=== PATIENT | female | born 1985 | race Caucasian/White ===

== ENCOUNTER 2016-09-24 10:41 | Emergency (ER) | payer MEDICAID ==
[2016-09-24 11:12] VITALS: BP 101/73; PULSE 96; RESP 16; TEMP 97.9; O2SAT 95
[2016-09-24 11:23] LABS: COLOR YELLOW; LEUKOCYTE ESTERASE,URINE 3+ (NEGATIVE); NITRITE,URINE POSITIVE (NEGATIVE); PH,URINE 5.5 (5.0-7.5)
[2016-09-24 11:39] LABS: WBC,URINE >182 /hpf (0-3)
[2016-09-24 11:40] LABS: BACTERIA 2+ /hpf (NONE SEEN); RBC,URINE 25-50 /hpf (0-3)
--- NOTE | 2016-09-24 12:03 | UCPHY ---
[id number] 4d 09/24/16 11:57 HPI/ROS: HPI: 30-year-old female presents to urgent care with chief concern urinary burning and frequency times 4-5 days. Onset within a day after she had intercourse. Denies fever, chills, nausea, vomiting, back or flank pain, suprapubic tenderness, hematuria, vulvovaginal lesions, increased vaginal discharge. Last UTI 2 years ago. No recent antibiotic use. ROS:10 point review of systems is negative other than as stated in HPI (Yu May) Physical Exam: Vital signs stable, reviewed by me General: Awake, alert, calm, cooperative. No acute distress. EENT: PERRLA. EOMI. No pallor or injection. Anicteric. No nystagmus. No injection. Neck: Supple, nontender. Respiratory: Breathing unlabored. Breath sounds equal bilaterally and clear to auscultation. No adventitious sounds. CV: Chest nontender, atraumatic. Heart rate regular. GI: Abdomen soft, nontender. Bowel sounds normoactive and positive x4 quadrants. : No suprapubic tenderness. No CVA or flank tenderness. Neuro: Alert. Oriented x 3. Speech clear. Nonfocal cranial nerves throughout. Sensation intact all extremities. Skin: Skin warm, dry, intact. Extremities: Moves all extremities (Yu May) Constitutional: Initial Vital Signs Temperature (C) 36.6 C 09/24/16 11:11 Heart Rate 96 09/24/16 11:11 Respiratory Rate 16 09/24/16 11:11 Blood Pressure 101/73 09/24/16 11:11 O2 Sat (%) 95 09/24/16 11:11 O2 Delivery Mode Room Air Allergies/Adverse Reactions: No Known Allergies Allergy (Verified 09/24/16 11:10) Home Medications: Medication Instructions Recorded None 11/22/09 Fluconazole [Diflucan 150 MG (RX)] 150 mg PO ONCE #2 tab 09/24/16 Nitrofurantoin Macrobid [Macrobid] 100 mg PO BID #14 cap 09/24/16 Medical Decision Making ED Course/Re-evaluation: Nontoxic, afebrile. Urinalysis is consistent with UTI with positive nitrate, esterase, and greater than 182 WBCs. No fever, nausea, vomiting, back or flank pain. Culture pending. Patient started on twice daily Macrobid x1 week. (Yu May) Urgent Care PA supervision Physician documentation: The patient was evaluated and managed by the physician preschool assistant principal. My co- signature indicates that I have reviewed this chart and I agree with the findings and plan of care as documented. I am the secondary supervising physician. (Yoandy Sullivan) Differential Diagnosis: Differential includes but is not limited to cystitis, pyelonephritis, urethritis , dysuria (Yu May) - Data Points Microbiology Results: MICROBIOLOGY 09/24/16 11:35 Urine,Clean Catch Urine Culture - Preliminary Gram Neg Leonel Lactose Front Office Coordinator Departure - Departure Disposition: Home, Routine, Self-Care Clinical Impression: Urinary tract infection Condition: Good Instructions: Urinary Tract Infection in Women (ED) Additional Instructions: Plan: Drink plenty of fluids Antibiotic twice daily for 1 week Take an [id number] probiotic and/or eat yogurt while taking this antibiotic. If you develop yeast infection symptoms, may use Diflucan once. May repeat in 72 hours if symptoms still present. Do not drink alcohol while using Diflucan. Azo [id number] for symptoms of burning as needed May continue to drink your cranberry juice If you develop worsening symptoms including fever, chills, back or flank pain, nausea or vomiting please return promptly for recheck or follow up with primary care at [facility] Referrals: IN STATE,. [Primary Care Provider] - As per Instructions Prescriptions: Fluconazole [Diflucan 150 MG (RX)] 150 mg PO ONCE #2 tab Nitrofurantoin Macrobid [Macrobid] 100 mg PO BID #14 cap - PQRS PQRS Measurement: Not applicable (Yu May)
== END 2016-09-24 12:15 | disposition home or self-care (01) ==
LOC: CED 10:41
DX: N39.0 Urinary tract infection, site not specified (principal); Z87.440 Personal history of urinary (tract) infections
CPT/HCPCS: 81003-PO; 81015-PO; G0463-PO